=== PATIENT | female | born 1965 | race Caucasian/White ===

== ENCOUNTER 2018-12-24 15:23 | Emergency (ER) | payer BC ==
[2018-12-24 16:22] VITALS: BP 129/81
--- NOTE | 2018-12-24 17:24 | UC ---
Skin Complaint HPI - HPI Summary HPI Summary: 53-year-old woman comes in with a chief complaint of a nonhealing wound of the upper back just distal to the right side of the neck. I will get a half ago she felt there was an insect bite there and she scratched it. Since that time the area expanding gotten more red she started using neomycin on it but did not improve. She switched to a different antibiotic ointment which kept him from getting any bigger. However now the area is slightly tender to palpation and she's noticed some swollen lymph nodes in the right lower neck. No fevers or chills feels well otherwise. No history of MRSA. Did not notice any blistering at the site and has not had any other lesions on her body. - History of Current Complaint Chief Complaint: UCSkin Time Seen by Provider: 12/24/18 17:14 Stated Complaint: SWOLLEN GLAND,SKIN COMPLAINT Pain Intensity: 0 - Allergy/Home Medications Allergies/Adverse Reactions: Allergies Allergy/AdvReac Type Severity Reaction Status Date / Time No Known Allergies Allergy Verified 12/24/18 16:14 PMH/Surg Hx/FS Hx/Imm Hx Previously Healthy: Yes - Surgical History Surgical History: Yes Surgery Procedure, Year, and Place: LAPAROTOMY, FOOT SURGERY, - Family History Known Family History: Positive: Non-Contributory - Social History Alcohol Use: Occasionally Substance Use Type: None Smoking Status (MU): Never Smoked Tobacco - Immunization History Most Recent Influenza Vaccination: NOT THIS SEASON Review of Systems All Other Systems Reviewed And Are Negative: Yes Constitutional: Positive: Negative Skin: Positive: Other - SEE HPI Eyes: Positive: Negative ENT: Positive: Negative Respiratory: Positive: Negative Cardiovascular: Positive: Negative Gastrointestinal: Positive: Negative Motor: Positive: Negative Musculoskeletal: Positive: Negative Neurological: Positive: Negative Psychological: Positive: Negative Is Patient Immunocompromised?: No Physical Exam Triage Information Reviewed: Yes Appearance: Well-Appearing, No Pain Distress, Well-Nourished Vital Signs: Initial Vital Signs Temp 98.5 F 12/24/18 16:14 Pulse 76 12/24/18 16:14 Resp 12 12/24/18 16:14 BP 129/81 12/24/18 16:14 Pulse Ox 99 12/24/18 16:14 Vital Signs Reviewed: Yes Eye Exam: Normal Eyes: Positive: Conjunctiva Clear ENT: Negative: Nasal congestion Neck: Positive: Supple, Enlarged Nodes @ - RT LOWER LATERAL Respiratory: Positive: Lungs clear, Normal breath sounds, No respiratory distress Cardiovascular: Positive: RRR Musculoskeletal Exam: Normal Musculoskeletal: Positive: Strength Intact, ROM Intact Neurological Exam: Normal Neurological: Positive: Alert, Muscle Tone Normal Psychological Exam: Normal Psychological: Positive: Age Appropriate Behavior Skin: Positive: Other - On the right upper thoracic back just distal to the right side of the neck there are 2 scabbed over lesions each 1 cm diameter with some surrounding erythema. No drainage no vesicles. Mildly tender to palpation. Course/Dx - Course Course Of Treatment: We will treat with doxycycline 100 mg by mouth twice a day for 10 days and also mupirocin topically. The patient know to avoid using any neomycin products. Injury has the appearance of a nonhealing wound. Because his been no vesicles no further drainage and no spread I do not believe that poison alexandra as the cause. I let the patient know that after treatment the wound should heal in the lymphadenopathy should go away and to get reevaluated if it does not completely improve. - Diagnoses Provider Diagnosis: Cellulitis, Lymphadenopathy Discharge - Sign-Out/Discharge Documenting (check all that apply): Patient Departure All imaging exams completed and their final reports reviewed: No Studies - Discharge Plan Condition: Stable Disposition: HOME Prescriptions: DOXYcycline CAP(*) [DOXYcycline 100MG CAP(*)] 100 mg PO BID #20 cap Mupirocin 1 applic TOPICAL BID #22 gm Patient Education Materials: Cellulitis (ED), Lymphadenopathy (ED) Referrals: Poly Patricia MD [Primary Care Provider] - Additional Instructions: FOLLOW UP WITH YOUR DOCTOR IF NOT COMPLETELY IMPROVED. GET REEVALUATED SOONER IF WORSE OR ANY QUESTIONS OR CONCERNS. - Billing Disposition and Condition Condition: STABLE Disposition: Home
== END 2018-12-24 17:30 | disposition home or self-care (01) ==
LOC: UCCORT 15:23
DX: L03.312 Cellulitis of back [any part except buttock and flank] (principal); R59.1 Generalized enlarged lymph nodes
CPT/HCPCS: 99212; G0463

== ENCOUNTER 2019-08-12 08:11 | Emergency (ER) | payer BC ==
[2019-08-12 08:35] VITALS: BP 144/76
--- NOTE | 2019-08-12 09:01 | UC ---
Eye Complaint HPI - HPI Summary HPI Summary: Her dog scratched her left eye last night trying to jump into bed. Red, irritated, mildy swollen and watering today. Pain has improved some. No vision loss. Nothing improves Sx. nothing worsens Sx. Pain 12/26 [ End ] - History of Current Complaint Chief Complaint: UCEye Stated Complaint: LT EYE CONCERN Time Seen by Provider: 08/12/19 08:52 Hx Obtained From: Patient Onset/Duration: Sudden Onset Pain Intensity: 4 - Allergies/Home Medications Allergies/Adverse Reactions: Allergies Allergy/AdvReac Type Severity Reaction Status Date / Time No Known Allergies Allergy Verified 08/12/19 08:33 Home Medications: Home Medications Naproxen Sodium [Aleve] 220 mg PO ONCE 08/12/19 [History Confirmed 08/12/19] Polymyx/Trimethoprim OPTH* [Polytrim OPHTH*] 1 drop LEFT EYE Q3H 5 Days #1 btl 08/12/19 [Rx] PMH/Surg Hx/FS Hx/Imm Hx Previously Healthy: Yes - Surgical History Surgical History: Yes Surgery Procedure, Year, and Place: LAPAROTOMY, FOOT SURGERY, - Family History Known Family History: Positive: Non-Contributory - Social History Alcohol Use: Rare Substance Use Type: None Smoking Status (MU): Never Smoked Tobacco - Immunization History Most Recent Influenza Vaccination: NOT THIS SEASON Review of Systems All Other Systems Reviewed And Are Negative: Yes Eyes: Positive: Blurred Vision, Drainage - clear, Photophobia. Negative: Diplopia, Eye Redness Physical Exam Triage Information Reviewed: Yes Appearance: Well-Appearing, No Pain Distress, Well-Nourished Vital Signs: Initial Vital Signs Temp 98.6 F 08/12/19 08:32 Pulse 77 08/12/19 08:32 Resp 17 08/12/19 08:32 BP 144/76 08/12/19 08:32 Pulse Ox 99 08/12/19 08:32 Vital Signs Reviewed: Yes Eye Exam: Normal ENT Exam: Normal Neck: Positive: 1 Respiratory Exam: Normal Cardiovascular Exam: Normal Musculoskeletal Exam: Normal Neurological Exam: Normal Psychological Exam: Normal Skin Exam: Normal Procedures - Eye Procedure Left Alcaine Drops Administered: Yes Eye Complaint Course/Dx - Course Course Of Treatment: flourosceine uptake at noon. moderate corneal abrasion. tetracaine caused pain to reduce by 90 % or more. start abx drops. f/u with her optho tomorrow. - Differential Dx/Diagnosis Differential Diagnosis/HQI/PQRI: Conjunctivitis, Corneal Abrasion Provider Diagnosis: Corneal abrasion, left Discharge ED - Sign-Out/Discharge Documenting (check all that apply): Patient Departure All imaging exams completed and their final reports reviewed: No Studies - Discharge Plan Condition: Good Disposition: HOME Prescriptions: Polymyx/Trimethoprim OPTH* [Polytrim OPHTH*] 1 drop LEFT EYE Q3H 5 Days #1 btl Patient Education Materials: Corneal Abrasion (ED) Referrals: Poly Patricia MD [Primary Care Provider] - 3 Days Additional Instructions: Please follow up with your supply and distribution manager as we discussed - Billing Disposition and Condition Condition: GOOD Disposition: Home
[2019-08-12] MEDS ORDERED: Tetracaine 0.5% OPTH.SOL 4 ML* 1 DROP BTL LEFT EYE ONE (09:04)
[2019-08-12] MEDS ORDERED: Fluorescein Sodium TOPICAL* 1 MG TEST STRIP OPHTHALMIC ONE (09:05)
== END 2019-08-12 09:24 | disposition home or self-care (01) ==
LOC: UCCORT 08:11
DX: S05.02XA Injury of conjunctiva and corneal abrasion without foreign body, left eye, initial encounter (principal); W54.8XXA Other contact with dog, initial encounter; Y92.9 Unspecified place or not applicable
CPT/HCPCS: 99212; A9270-GY; G0463